=== PATIENT | female | born 1990 | race African-American/Black ===

== ENCOUNTER 2016-07-20 13:39 | Emergency (ER) | payer OTHER ==
[2016-07-20 14:06] VITALS: BP 107/65; PULSE 103
[2016-07-20 14:15] VITALS: RESP 18; TEMP 98.1
[2016-07-20] MEDS ORDERED: METOCLOPRAMIDE HCL 10 MG/2 ML VIAL IV PUSH ONE (14:15)
[2016-07-20] MEDS ORDERED: ONDANSETRON HCL 4 MG/2 ML VIAL IV ONE (14:15)
[2016-07-20] MEDS ORDERED: PROM25TA5 PO (14:23)
--- NOTE | 2016-07-20 14:23 | PD ---
HPI Chief Complaint Nausea vomiting Date Seen: Jul 20, 2016 Travel History International Travel<30 Days: No Contact w/Intl Traveler<30Days: No Known Affected Area: No History of Present Illness HPI The patient is a 25-year-old white female at 28 weeks presents with nausea vomiting several days. She's had no medication to take at home. She recently wrote relocated to this area from [place] has had essentially no care since late March 2016. She is planning to get in touch with care Providers here and is planning to deliver here Para: 1 : 2 History Obstetric History Obstetric History One vaginal delivery Social History Alcohol Use: No Tobacco Use: No Substance Abuse: No Allergies-Medications (Allergen,Severity, Reaction): Coded Allergies: No Known Allergies (Unverified , 07/20/16) Review of Systems General / Constitutional: No: Fever, Weight Gain, Chills, Other Eyes: No: Diploplia, Blurred Vision, Visual changes, Pain, Photophobia HENT: No: Headaches, Vertigo, Lightheadedness Cardiovascular: No: Irregular Rhythm, Chest Pain or Discomfort, Palpitations, Tachycardia, Syncope, Varicosities, Edema, Cyanosis Respiratory: No: Cough, Short of Breath, Other Gastrointestinal: Nausea, Vomiting, No: Diarrhea Genitourinary: No: Decreased Urinary Output, Oliguria Musculoskeletal: No: Limited ROM, Weakness, Cramping, Edema, Pain Skin: No Rash, No Itching, No Dryness, No Lumps, No Change in Pigmentation, No Change in Nails, No Alopecia, No Lesions Neurologic: No: Weakness, Dizziness, Syncope, Focal Abnormalities, Coordination Problem, Headache, Slurred Speech, Seizures Psychiatric: No: Depression, Suicidal Ideations, Homicidal Ideation Endocrine: No: Heat Intolerance, Cold Intolerance, Polydipsia, Polyuria, Other Physical Exam Narrative GENERAL: Well-nourished, well-developed patient. SKIN: Warm and dry. HEAD: Normocephalic and atraumatic. EYES: No scleral icterus. No injection or drainage. ENT: No nasal drainage noted. Mucous membranes pink. Airway patent. NECK: Supple, trachea midline. No JVD. CARDIOVASCULAR: Regular rate and rhythm without murmurs, gallops, or rubs. RESPIRATORY: Breath sounds equal bilaterally. No accessory muscle use. BREASTS: Bilateral exam showed no masses , no retractions, no nipple discharge. ABDOMEN/GI: Abdomen soft, non-tender, bowel sounds present, no rebound, no guarding Gravid to [-28] weeks size Fundal Height: [-28] GENITOURINARY: External Genitalia: intact and normal in appearance ZACHARY brush Category: [-1] Baseline: [133-] Reactive: [-yes] Variability: [-mod] Decels: [-none] EXTREMITIES: No cyanosis or edema. BACK: Nontender without obvious deformity. No CVA tenderness. NEUROLOGICAL: Awake and alert. Motor and sensory grossly within normal limits. Five out of 5 muscle strength in all muscle groups. Normal speech. Data Data Orders Vital Signs (Adult) .ON ADMISSION (07/20/16 14:12) ^ Labor Status (07/20/16 14:12) Urinalysis - C+S If Indicated (07/20/16 14:12) Lactated Ringer's 1000 Ml Inj (Lr 1000 M (07/20/16 15:00) Ondansetron Inj (Zofran Inj) (07/20/16 14:15) Metoclopramide Inj (Reglan Inj) (07/20/16 14:15) MDM Medical Record Reviewed: No Interpretation(s) Patient is 25-year-old black female at 28 weeks with nausea and vomiting the last 2 days. Denies bleeding or ruptured membranes, heart rate tracing is reactive, plan is to IV hydrate patient with a liter of LR and then 4 mg of Zofran IV 10 mg and Reglan IV. Discharge home with by mouth Phenergan 25 mg Plan The patient to take Phenergan by mouth at home when necessary and bland diet bedrest the next day or so and follow up with the obtaining care in this area Diagnosis Diagnosis: Primary Impression: Nausea and vomiting of , antepartum Disposition: 01 DISCHARGE HOME Condition: Stable Scripts Promethazine (Phenergan)25 Mg Tab25 Mg PO Q6H PRN (Nausea/Vomiting) #30 TAB Ref 0 Prov:Pawan Molina II, MD 07/20/16 Pawan Molina II, MD Jul 20, 2016 14:23
[2016-07-20 14:40] LABS: BACTERIA, URINE OCC /hpf; BLOOD, URINE NEG (NEG); COMMENT (UR) CULT NOT INDICATED; CULTURE IF INDICATED CULT NOT INDICATED; GLUCOSE,URINE NEG (NEG); HYALINE CAST, URINE 1 /lpf (RARE); KETONE, URINE 150 mg/dL (NEG); MUCUS URINE MOD /lpf (OCC); NITRITE,URINE NEG (NEG); SQUAMOUS EPITHELIAL CELL URINE 11 /hpf (0-5); URINE COLOR YELLOW (YELLW/STRAW)
[2016-07-20] MEDS ORDERED: LACTATED RINGER'S 1000 ML INJ 1,000 ML IV SCH (15:00)
== END 2016-07-20 16:00 | disposition home or self-care (01) ==
LOC: HOBED 13:39
DX: O21.9 Vomiting of pregnancy, unspecified (principal); Z3A.28 28 weeks gestation of pregnancy
CPT/HCPCS: 81001; 96361; 96374; 96375; 99284; J2405; J2765; J7120